=== PATIENT | female | born 1975 | race Caucasian/White ===

== ENCOUNTER → 2020-01-12 | Emergency (ER) | payer OTHER ==
[~2020-01-12] VITALS: Ht 162.6 cm; Wt 81.6 kg
[~2020-01-12] MED LIST: RESTORIL30 M1 PO; WELLBUTRIN SR150 MG PO; ZOLOFT50 MG PO
== END | disposition home or self-care (01) ==
LOC: ER 16:33
DX: B00.1 Herpesviral vesicular dermatitis (principal)